=== PATIENT | male | born 1950 | race Caucasian/White ===

== ENCOUNTER 2024-09-11 15:29 | Emergency (ER) | payer MEDICARE, BC ==
[~2024-09-11] VITALS: Ht 180.3 cm; Wt 114.0 kg
[2024-09-11 15:45] VITALS: BP 125/67
[2024-09-11] MEDS ORDERED: CEFEPIME HYDROCHLORIDE 1 GM in SODIUM CHLORIDE 0.9% 50 ML IV ONE (15:55)
[2024-09-11] MEDS ORDERED: VANCOMYCIN HCL 1 GM in SODIUM CHLORIDE 0.9% 250 ML IV ONE (15:55)
[2024-09-11] MEDS ORDERED: SODIUM CHLORIDE 0.9% 1,000 ML IV ONE (15:55)
[2024-09-11 16:29] LABS: BASO% 0.1 % (0-3); EOS% 0.2 % (0-8); HEMATOCRIT 40.9 % (39.0-50.0); HEMOGLOBIN 12.7 g/dl (14.0-18.0); LYMPH% 10.5 % (15-41); MEAN CELL VOLUME 80.8 fL CALC (80.0-100.0); MEAN CORPUSCULAR HGB 25.1 pG CALC (26.0-32.0); MEAN CORPUSCULAR HGB CONC 31.1 g/dL CAL (32.0-36.0); MONO% 7.8 % (2-13); NEUT# 12.19 thou/uL (1.82-7.42); NEUT% 80.4 % (42-76); RED BLOOD COUNT 5.06 mill/uL (4.70-6.10); RED CELL DISTRI WIDTH 18.4 % (11.5-15.5)
[2024-09-11 16:42] LABS: ALBUMIN 4.3 g/dL (3.2-5.0); CREATININE 1.7 mg/dL (0.7-1.3); POTASSIUM 4.4 mmol/l (3.5-5.1); TOTAL PROTEIN 7.2 g/dL (6.3-8.2)
[2024-09-11 16:53] LABS: C-REACTIVE PROTEIN 17.4 mg/dL (0-0.9)
[2024-09-11] MEDS ORDERED: VANCOMYCIN HCL 1 GM/VIAL IV ONE (17:26)
[2024-09-11] MEDS ORDERED: SODIUM CHLORIDE 0.9% 250 ML IV ONE (17:48)
[2024-09-11 18:02] VITALS: BP 135/62
[2024-09-11 18:31] VITALS: BP 137/84
[2024-09-11 19:01] VITALS: BP 153/70
[2024-09-11 19:31] VITALS: BP 156/103
[2024-09-11 20:31] VITALS: BP 96/63
== END 2024-09-11 21:58 ==
LOC: ED 15:29
PROVIDERS: Nurse Practitioner
DX: L03.113 Cellulitis of right upper limb (principal); I12.9 Hypertensive chronic kidney disease with stage 1 through stage 4 chronic kidney disease, or unspecified chronic kidney disease; E11.22 Type 2 diabetes mellitus with diabetic chronic kidney disease; N18.30 Chronic kidney disease, stage 3 unspecified; I48.91 Unspecified atrial fibrillation; Z95.5 Presence of coronary angioplasty implant and graft
CPT/HCPCS: J0692; J3370